=== PATIENT | male | born 1975 | race Caucasian/White ===

== ENCOUNTER 2021-08-30 22:12 | Emergency (ER) | payer MEDICARE ==
[~2021-08-30] VITALS: Ht 180.3 cm; Wt 81.8 kg
[2021-08-31] MEDS ORDERED: IBUPROFEN 600MG TAB PO ONE (02:00)
[2021-08-31 02:17] VITALS: BP 133/79
== END 2021-08-31 02:18 | disposition home or self-care (01) ==
LOC: M ED 22:12
DX: S80.01XA Contusion of right knee, initial encounter (principal); V00.311A Fall from snowboard, initial encounter; Y92.838 Other recreation area as the place of occurrence of the external cause; Y93.23 Activity, snow (alpine) (downhill) skiing, snowboarding, sledding, tobogganing and snow tubing; Z88.8 Allergy status to other drugs, medicaments and biological substances

== ENCOUNTER 2021-08-31 10:16 | Emergency (ER) | payer MEDICARE ==
[~2021-08-31] VITALS: Ht 180.3 cm; Wt 81.8 kg
[2021-08-31] MEDS ORDERED: ACETAMINOPHEN 325 MG TAB PO ONE (15:25)
[2021-08-31 15:35] VITALS: BP 129/82
== END 2021-08-31 15:37 | disposition home or self-care (01) ==
LOC: M ED 10:16
DX: S80.11XA Contusion of right lower leg, initial encounter (principal); V00.311A Fall from snowboard, initial encounter; Y92.838 Other recreation area as the place of occurrence of the external cause; Y93.23 Activity, snow (alpine) (downhill) skiing, snowboarding, sledding, tobogganing and snow tubing; Z88.8 Allergy status to other drugs, medicaments and biological substances